=== PATIENT | male | born 1985 | race Caucasian/White ===

== ENCOUNTER 2023-01-10 10:46 | Day surgery (SDC) | payer OTHER ==
[~2023-01-10] VITALS: Ht 188 cm; Wt 136.8 kg
[2023-01-10] VITALS (7 sets, daily range): BP systolic 125–156; BP diastolic 70–91; PULSE 72–84; TEMP 97.8–97.9
[~2023-01-10 10:46] MED LIST: D3-5050000 IU PO
[2023-01-10] MEDS ORDERED: MOTRIN 600600 MG/TAB PO (14:30)
[2023-01-10] MEDS ORDERED: NORCO 325 MG-51 TAB PO (14:30)
--- NOTE | 2023-01-10 16:25 | NUR ---
1432 RETURNS TO ROOM 1 PER CART. AWAKE, ALERT. RESP UNLABORED. HOB ELEVATED 40 DEGREES. VITAL SIGNS OBTAINED. ABD SOFT. UMBILICAL AREA INCISION INTACT WITHOUT REDNESS OR DRAINAGE. CALL LIGHT AT SIDE. FAMILY IN ROOM. 1445 AWAKE, ALERT. 1500 TOLERATES PO JUICE AND TOAST WITHOUT NAUSEA. 1515 REPORTS MILD TO MODERATE PAIN. DENIES NEED FOR PAIN MED AT THIS TIME. 1530 DISCHARGE INSTRUCTIONS REVIEWED. PATIENT AND AND FAMILY VERBALIZE UNDERSTANDING. COPY PROVIDED IN DISCHARGE FOLDER. 1550 PO PAIN MED GIVEN PER PATIENT REQUEST PRIOR TO CAR RIDE HOME. 1610 SITS ON EDGE OF BED. DRESSES WITH MINIMAL ASSIST FROM . 1615 AMBULATES TO BATHROOM WITH STANDBY ASSIST. REPORTS VOIDING WITHOUT DIFFICULTY
== END 2023-01-10 16:25 | disposition home or self-care (01) ==
LOC: SDCO 10:46
DX: K42.9 Umbilical hernia without obstruction or gangrene (principal); G47.33 Obstructive sleep apnea (adult) (pediatric); E66.9 Obesity, unspecified; K21.9 Gastro-esophageal reflux disease without esophagitis; F17.210 Nicotine dependence, cigarettes, uncomplicated; Z79.899 Other long term (current) drug therapy; Z99.81 Dependence on supplemental oxygen; Z68.36 Body mass index [BMI] 36.0-36.9, adult
CPT/HCPCS: C1781; J0690; J1100; J2405; J2704; J3010; J7120